=== PATIENT | female | born 1950 | race Caucasian/White ===

== ENCOUNTER → 2016-09-11 | Outpatient (CLI) | payer MEDICARE, OTHER ==
[~2016-09-11] MED LIST: ADEKS PO; HYDR12.56 PO; LISI-515 PO; NAPR220T95 PO; OXYC1TAB63 PO; TERB250T4 PO; XARE10TA PO
[2016-09-11 09:09] LABS: MEAN CELL VOLUME 80.4 FL (80.0-100.0); MEAN CORPUSCULAR HGB CONC 32.3 % (32.0-36.0); PLATELET COUNT 303 TH/MM3 (150-450); RED BLOOD COUNT 4.73 MIL/MM3 (4.00-5.30); RED CELL DISTRIBUTION WIDTH 15.9 % (11.6-17.2); REVIEW FLAG FINAL; WHITE BLOOD COUNT 5.3 TH/MM3 (4.0-11.0)
[2016-09-11 09:10] LABS: PROTHROMBIN TIME - PATIENT 11.4 SEC (9.8-11.6)
[2016-09-11 09:36] LABS: BICARBONATE 29.9 MEQ/L (21.0-32.0); POTASSIUM 4.2 MEQ/L (3.5-5.1)
[2016-09-11 11:18] LABS: BLOOD, URINE NEG (NEG); GLUCOSE,URINE NEG (NEG); KETONE, URINE NEG (NEG); NITRITE,URINE NEG (NEG); PH, URINE 5.5 (5.0-8.5); URINE COLOR LIGHT-YELLOW (YELLW/STRAW)
[2016-09-11 11:29] LABS: COMMENT (UR) CATH-CULT NOT IND; CULTURE IF INDICATED CATH CULTURE NOT IND
== END ==
LOC: CPRE 08:35
PROVIDERS: ATTEND Orthopaedic Surgery
DX: Z01.812 Encounter for preprocedural laboratory examination (principal); M17.12 Unilateral primary osteoarthritis, left knee; M79.609 Pain in unspecified limb
CPT/HCPCS: 36415; 80048; 81001; 85027; 85610; 85730

== ENCOUNTER → 2016-09-21 | Day surgery (SDC) | payer MEDICARE, OTHER ==
[~2016-09-21] MED LIST changes: +CHLORHEXIDINE GLUCONATE 4% SOLN 120 ML BTL TOP SCH; +EXPAREL PERI-ARTICULAR INJECTION (TOTAL VOL. 100 ML) P-ARTICULR SCH; +INSULIN HUMAN REGULAR 1,000 UNITS/10 ML VIAL SQ PRN; +LACTATED RINGER'S 1000 ML IV SCH; +METOPROLOL TARTRATE 25 MG TAB PO PRN; +SODIUM CHLORID 0.9% 500 ML IV SCH; +SODIUM CHLORIDE 0.9% IV SCH; -TERB250T4 PO; +TRANEXAMIC ACID IV SCH; +ceFAZolin 2 GM PREMIX 50 ML IV SCH
== END | disposition home or self-care (01) ==
LOC: HSDC 07:14 → HSDI 07:14 → UNDOADMIN 07:14 → EDSTATUS 10:00
PROVIDERS: ATTEND Orthopaedic Surgery
DX: M17.12 Unilateral primary osteoarthritis, left knee (principal); M25.562 Pain in left knee; R26.2 Difficulty in walking, not elsewhere classified; Z53.8 Procedure and treatment not carried out for other reasons
CPT/HCPCS: 99211; G0463

== ENCOUNTER 2016-10-07 10:12 | Inpatient (IN) | payer MEDICARE, OTHER ==
[~2016-10-07] VITALS: Ht 175.3 cm; Wt 91.5 kg
[~2016-10-07 10:12] MED LIST changes: -CHLORHEXIDINE GLUCONATE 4% SOLN 120 ML BTL TOP SCH; -EXPAREL PERI-ARTICULAR INJECTION (TOTAL VOL. 100 ML) P-ARTICULR SCH; -INSULIN HUMAN REGULAR 1,000 UNITS/10 ML VIAL SQ PRN; -LACTATED RINGER'S 1000 ML IV SCH; -METOPROLOL TARTRATE 25 MG TAB PO PRN; -OXYC1TAB63 PO; -SODIUM CHLORID 0.9% 500 ML IV SCH; -SODIUM CHLORIDE 0.9% IV SCH; -TRANEXAMIC ACID IV SCH; -XARE10TA PO; -ceFAZolin 2 GM PREMIX 50 ML IV SCH
[2016-10-12] MEDS: CHLORHEXIDINE GLUCONATE 4% SOLN 120 ML BTL TOP SCH (08:15)
[2016-10-12] MEDS ORDERED: METOPROLOL TARTRATE 25 MG TAB PO PRN (08:15)
[2016-10-12] MEDS ORDERED: ceFAZolin 2 GM PREMIX 50 ML IV SCH (08:15)
[2016-10-12] MEDS ORDERED: INSULIN HUMAN REGULAR 1,000 UNITS/10 ML VIAL SQ PRN (08:15)
[2016-10-12 08:20] VITALS: BP 134/67; PULSE 55; RESP 20; TEMP 98.1; O2SAT 97
[2016-10-12 08:36] LABS: AUTOMATED NEUTROPHIL # 2.2 TH/MM3 (1.8-7.7); BASOPHIL % 1.1 % (0.0-2.0); EOSINOPHIL # 0.1 TH/MM3 (0-0.4); EOSINOPHIL % 3.3 % (0.0-4.0); HEMATOCRIT 36.6 % (35.0-46.0); HEMO FLAGS DIFF FINAL; LYMPH % 33.5 % (9.0-44.0); LYMPHOCYTE # 1.4 TH/MM3 (1.0-4.8); MEAN CELL VOLUME 80.9 FL (80.0-100.0); MEAN CORPUSCULAR HEMOGLOBIN 26.3 PG (27.0-34.0); MEAN CORPUSCULAR HGB CONC 32.5 % (32.0-36.0); MONO % 10.1 % (0.0-8.0); PLATELET COUNT 214 TH/MM3 (150-450); RED BLOOD COUNT 4.52 MIL/MM3 (4.00-5.30); RED CELL DISTRIBUTION WIDTH 17.1 % (11.6-17.2); WHITE BLOOD COUNT 4.2 TH/MM3 (4.0-11.0)
[2016-10-12] MEDS ORDERED: MIDAZOLAM HCL 2 MG/2 ML VIAL ONE ×2 (08:51→09:39)
[2016-10-12] MEDS ORDERED: GENTAMICIN SULFATE 80 MG/2 ML VIAL ONE (08:58)
[2016-10-12] MEDS: BUPIVACAINE LIPOSO PF 1.3% INJ 20 ML in SODIUM CHLORIDE 0.9% INJ 80 ML P-ARTICULR SCH ×2 (09:00→10:27)
[2016-10-12] MEDS: SODIUM CHLORID 0.9% 500 ML IV SCH (09:00)
[2016-10-12] MEDS ORDERED: LACTATED RINGER'S 1000 ML IV SCH (09:00)
[2016-10-12] MEDS: TRANEXAMIC ACID INJ 915 MG in SODIUM CHLORIDE 0.9% INJ 100 ML IV SCH ×2 (09:00→10:07)
[2016-10-12] MEDS ORDERED: HYDROmorphone HCL PF 2 MG/ML VIAL ONE (09:39)
[2016-10-12] MEDS ORDERED: fentaNYL CITRATE 250 MCG/5 ML AMP ONE (09:39)
[2016-10-12] MEDS ORDERED: MAGNESIUM HYDROXIDE SUSP 30 ML CUP PO PRN (10:00)
[2016-10-12] MEDS ORDERED: SODIUM CHLORIDE 0.9% FLUSH 5 ML FLUSH IVF PRN (10:00)
[2016-10-12] MEDS ORDERED: Post-op Orders (for Pharmacy) MISC XX ONE (10:00)
[2016-10-12] MEDS ORDERED: TRANEXAMIC ACID INJ 915 MG in SODIUM CHLORIDE 0.9% INJ 100 ML IV SCH ×2 (11:00→14:00)
[2016-10-12] MEDS ORDERED: ZOLPIDEM TARTRATE 5 MG TAB PO PRN (11:00)
[2016-10-12] MEDS ORDERED: oxyCODONE/ACETAMINOPHEN 5 MG/325 MG TAB PO PRN (11:00)
[2016-10-12] MEDS ORDERED: MORPHINE SULFATE 4 MG/ML INJ IV PUSH PRN (11:00)
[2016-10-12] MEDS ORDERED: ONDANSETRON HCL 4 MG/2 ML VIAL IVP PRN (11:00)
[2016-10-12] MEDS ORDERED: NEOSTIGMINE 3 MG/3 ML SYR IV ONE (11:23)
[2016-10-12] MEDS ORDERED: ONDANSETRON HCL 4 MG/2 ML VIAL IV PUSH ONE (11:23)
[2016-10-12] MEDS ORDERED: PROPOFOL 200 MG/20 ML AMP IV ONE (11:23)
[2016-10-12] MEDS ORDERED: LACTATED RINGER'S 1000 ML INJ 1,000 ML IV ONE (11:23)
[2016-10-12] MEDS ORDERED: BUPIVACAINE LIPOSOME PF 1.3% 20 ML VIAL ONE (11:59)
--- NOTE | 2016-10-12 12:29 | HHI.FF ---
Face to Face Verification Diagnosis: (1) Status post total left knee replacement Physical Therapy Gait training Knee: Total knee, Protocol: Left, Gait training, Full weight bearing Left LE Weight Bearing: WB as tolerated Left LE Range of Motion: Active ROM (AROM, AAROM, PROM, PRE. ROM goal is 0 to 135 degrees. ROM achieved in the OR was 0 to 145 degrees.) Nursing Nursing: Dressing changes Dressing Changes: Daily dressing change, Coverderm/Primapore Additional Instructions Remove steristrips on postop day 14. I have seen patient Alison Bautista on 10/12/16. My clinical findings support the need for the requested home health care services because: Ltd mobility - disease progression Limited ability to care for self High risk of falls I certify that my clinical findings support that this patient is homebound because: Post-op weakness Unsteady gait/balance Unsafe to leave home unassisted Allen Ashley MD (Charles) Oct 12, 2016 12:29
[2016-10-12] MEDS ORDERED: *ONDANSETRON 4 MG VIAL PERIprocedural Use ONLY ONE (13:09)
[2016-10-12] MEDS ORDERED: *morphine SULFATE 8 MG/ML PERIprocedure ONLY ONE ×2 (13:19→13:33)
[2016-10-12] MEDS ORDERED: PROMETHAZINE HCL 25 MG SUPP ONE (13:23)
[2016-10-12] MEDS ORDERED: DO NOT ADM ANY ANTICOAGULANT DRUGS XX PRN (13:30)
[2016-10-12] MEDS ORDERED: *HYDROmorphone PF 1 MG VIAL PERIprocedural Use ONLY ONE (13:41)
[2016-10-12] MEDS ORDERED: PROCHLORPERAZINE INJ 10 MG/2 ML VIAL ONE (13:49)
[2016-10-12] MEDS: LACTATED RINGER'S 1000 ML INJ 1,000 ML IV SCH (14:06)
[2016-10-12] MEDS: KETOROLAC TROMETHAMINE 30 MG/ML (IVP) VIAL IVP SCH ×2 (14:30→22:07)
[2016-10-12] MEDS ORDERED: PROCHLORPERAZINE INJ 10 MG/2 ML VIAL IV ONE (14:30)
[2016-10-12] MEDS ORDERED: PROMETHAZINE HCL 25 MG SUPP RECTAL ONE (15:00)
--- NOTE | 2016-10-12 15:01 | RADRPT ---
EXAM DATE/TIME: 10/12/2016 12:54 [facility] COMPARISON: KNEE RIGHT LTD (1 OR 2 VWS), May 04, 2016, 15:09. INDICATIONS : Left knee postoperative. MEDICAL HISTORY : None. SURGICAL HISTORY : Left knee replacement. ENCOUNTER: Initial ACUITY: 1 day PAIN SCORE: Non-responsive. LOCATION: Left knee FINDINGS: The patient is post total knee are plasty. Orthopedic hardware is in excellent position. The alignmen t is good. CONCLUSION: 1. Orthopedic hardware excellent position. Rakesh Urrutia MD on October 12, 2016 at 14:58 Board Certified Radiologist. This report was verified electronically.
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
[2016-10-12] MEDS ORDERED: hydrALAZINE HCL 20 MG/ML VIAL IV PRN (15:30)
[2016-10-12 16:00] VITALS: BP 128/73; PULSE 76; RESP 16; TEMP 95.7; O2SAT 100
[2016-10-12] MEDS: MAGNESIUM HYDROXIDE SUSP 30 ML CUP PO SCH ×2 (16:00→22:06)
[2016-10-12 17:55] VITALS: O2SAT 98
[2016-10-12 20:41] VITALS: BP 123/76; PULSE 73; RESP 18; TEMP 96.6; O2SAT 96
[2016-10-12] MEDS: SODIUM CHLORIDE 0.9% FLUSH 5 ML FLUSH IVF SCH (21:00)
[2016-10-12] MEDS: SENNOSIDES 8.6 MG TAB PO SCH (22:06)
[2016-10-12] MEDS: oxyCODONE/ACETAMINOPHEN 5 MG/325 MG TAB PO PRN (23:56)
[2016-10-13] VITALS (7 sets, daily range): BP systolic 114–139; BP diastolic 55–73; PULSE 55–73; RESP 18–19; TEMP 97.2–98.9; O2SAT 93–100
[2016-10-13] MEDS: SODIUM CHLORID 0.9% 500 ML IV SCH (01:40)
[2016-10-13] MEDS: KETOROLAC TROMETHAMINE 30 MG/ML (IVP) VIAL IVP SCH ×4 (03:29→20:21)
[2016-10-13] MEDS: LACTATED RINGER'S 1000 ML INJ 1,000 ML IV SCH ×2 (03:29→12:00)
[2016-10-13 06:07] LABS: HEMATOCRIT 28.8 % (35.0-46.0); REVIEW FLAG FINAL
--- NOTE | 2016-10-13 06:25 | PD.ORT.PN ---
Subjective Post Op Day #: 1 Subjective Remarks She has some pain as expected. It is well controlled. Range of Motion -20 to 75 degrees. Distance Walked 2 feet with PT. Objective Vitals Vital Signs Date Time Temp Pulse Resp B/P Pulse Ox O2 Delivery O2 Flow Rate FiO2 10/13/16 05:04 18 10/13/16 04:06 97.2 58 18 128/67 98 10/13/16 01:27 18 10/13/16 00:43 97.5 55 19 114/55 100 10/12/16 20:41 96.6 73 18 123/76 96 10/12/16 17:55 98 Nasal Cannula 3.00 10/12/16 16:00 95.7 76 16 128/73 100 10/12/16 14:40 55 16 115/58 100 Nasal Cannula 3 10/12/16 14:15 97.4 52 16 120/56 100 Nasal Cannula 3 10/12/16 13:45 55 16 120/68 100 Nasal Cannula 3 10/12/16 13:30 60 16 153/80 99 Nasal Cannula 3 10/12/16 13:15 75 15 142/80 99 Nasal Cannula 3 10/12/16 13:00 61 15 117/70 98 Nasal Cannula 3 10/12/16 12:45 97.7 71 14 113/68 99 Nasal Cannula 3 10/12/16 08:20 98.1 55 20 134/67 97 I/O 10/12/16 10/12/16 10/12/16 10/13/16 10/13/16 10/13/16 07:00 15:00 23:00 07:00 15:00 23:00 Intake Total 1300 ml 480 ml Output Total 350 ml 110 ml Balance 950 ml 480 ml -110 ml Intake Oral 480 ml IV Total 200 ml Other 1100 ml Output Urine Total 200 ml Drainage Total 50 ml 110 ml Estimated Blood Loss 100 ml # Voids 1 2 # Bowel Movements 0 Result Diagram: 10/13/16 0525 Imaging Last 72 hours Impressions Knee X-Ray 10/12/16 0000 Signed Impressions: Service Date/Time: Wednesday, October 12, 2016 12:54 - CONCLUSION: 1. Orthopedic hardware excellent position. Rakesh Urrutia MD Objective Remarks She is resting comfortably, supine in bed in the CPM. The neurovascular status is intact. The dressing is dry and intact. Assessment & Plan Problem List: (1) Status post total left knee replacement Plan: Continue postop care and PT. Assessment and Plan Condition: Good. Orthopaedically stable. DVT prophylaxis: TEDs, sequentials, Xarelto (has med at home). Discharge plans: Home with [facility]. Has appointment. Allen Ashley MD (Charles) Oct 13, 2016 06:24
[2016-10-13 06:34] LABS: POTASSIUM 4.3 MEQ/L (3.5-5.1)
[2016-10-13] MEDS: CHLORHEXIDINE GLUCONATE 4% SOLN 120 ML BTL TOP SCH (08:15)
--- NOTE | 2016-10-13 08:21 | HHI.FPPN ---
Subjective Remarks No fevers, chills, nausea, vomiting, abdominal pain. No BM yet. Pain with movement of the right knee or body repositioning is noted. She states her BP medications have previously been lowered due to good control and endorses that she was taking lisinopril 20 and HCTZ 12.5mg daily at home. She has not had her BP meds yet this morning. Objective Vitals Vital Signs Date Time Temp Pulse Resp B/P Pulse Ox O2 Delivery O2 Flow Rate FiO2 10/13/16 05:04 18 10/13/16 04:06 97.2 58 18 128/67 98 10/13/16 01:27 18 10/13/16 00:43 97.5 55 19 114/55 100 10/12/16 20:41 96.6 73 18 123/76 96 10/12/16 17:55 98 Nasal Cannula 3.00 10/12/16 16:00 95.7 76 16 128/73 100 10/12/16 14:40 55 16 115/58 100 Nasal Cannula 3 10/12/16 14:15 97.4 52 16 120/56 100 Nasal Cannula 3 10/12/16 13:45 55 16 120/68 100 Nasal Cannula 3 10/12/16 13:30 60 16 153/80 99 Nasal Cannula 3 10/12/16 13:15 75 15 142/80 99 Nasal Cannula 3 10/12/16 13:00 61 15 117/70 98 Nasal Cannula 3 10/12/16 12:45 97.7 71 14 113/68 99 Nasal Cannula 3 10/12/16 08:20 98.1 55 20 134/67 97 I/O 10/12/16 10/12/16 10/12/16 10/13/16 10/13/16 10/13/16 07:00 15:00 23:00 07:00 15:00 23:00 Intake Total 1300 ml 480 ml 720 ml Output Total 350 ml 110 ml Balance 950 ml 480 ml 610 ml Intake Oral 480 ml 720 ml IV Total 200 ml Other 1100 ml Output Urine Total 200 ml Drainage Total 50 ml 110 ml Estimated Blood Loss 100 ml # Voids 1 2 3 # Bowel Movements 0 0 Result Diagram: 10/13/16 0525 10/13/16 0525 Imaging Last 72 hours Impressions Knee X-Ray 10/12/16 0000 Signed Impressions: Service Date/Time: Wednesday, October 12, 2016 12:54 - CONCLUSION: 1. Orthopedic hardware excellent position. Rakesh Urrutia MD Objective Remarks GENERAL: Well-nourished, well-developed female patient, sitting up in bed. She is ordering breakfast. SKIN: Warm and dry. Fingernails 2nd-4th digits having mild discoloration without nail thickening and only mildly elevated from the nail bed without extension onto the cuticle. 3rd and 4th fingernail having underlying black staining. HEAD: Atraumatic. Normocephalic. EYES: Pupils equal and round. No scleral icterus. No injection or drainage. ENT: No nasal bleeding or discharge. Mucous membranes pink and moist. Uvula is midline. NECK: Trachea midline. No JVD. CARDIOVASCULAR: Regular rate and rhythm. No murmurs. The patient has 2+ pulses in upper and lower extremities bilaterally. RESPIRATORY: No accessory muscle use. Clear to auscultation without crackles or wheezes. Breath sounds equal bilaterally. GASTROINTESTINAL: Abdomen soft, non-tender, nondistended. Bowel sounds are hypoactive. Hepatic and splenic margins not palpable. MUSCULOSKELETAL: Right lower extremity without any obvious deformities or abnormalities. Scar over the right patella. Left lower extremity is held in traction device with surgical drain coming from clean Thomas wrap and dressing, small volume sanguinous output. The right foot has normal sensation, notable that the second and great toe are overlapping due to bony deformity. Extremities otherwise without clubbing, cyanosis, or edema. NEUROLOGICAL: Sleepy but easily aroused from sleep. She is alert and oriented 4. No obvious cranial nerve deficits. Normal speech. Medications and IVs Inpatient Medications Bupivacaine Liposome 20 ml/ Sodium Chloride 100 ml @ 120 mls/hr ONCE P- ARTICULR Last administered on 10/12/16 10:27; Start 10/12/16 at 09:00; Stop at 08:59 Cefazolin Sodium/ Dextrose 50 ml @ 100 mls/hr ROCKET MOTOR MECHANIC IV Last administered on 10/12/16 10:19; Start 10/12/16 at 08:15; Stop 10/15/16 at 08:14 Cefazolin Sodium/ Sodium Chloride (Ancef Inj/NS Inj) 100 ml @ 200 mls/hr Q6H IV Last administered on 10/13/16 03:29; Start 10/12/16 at 20:00; Stop at 08:29; Status DC Chlorhexidine Gluconate 1 applic 1 applic ONCE TOP ; Start 10/12/16 at 08:15; Stop 10/15/16 at 08:14 Docusate Sodium (Colace) 100 mg BID PO ; Start 10/13/16 at 21:00 Hydralazine HCl (Apresoline Inj) 10 mg Q6H PRN IV SEE LABEL COMMENTS; Start at 15:30 Hydrochlorothiazide (Microzide) 12.5 mg DAILY PO ; Start 10/13/16 at 09:00 Insulin Human Regular (NovoLIN R INJ) See Protocol Table ... UNSCH X1 PRN SQ SEE PROTOCOL; Start 10/12/16 at 08:15; Stop 10/13/16 at 08:14; Status DC IV Flush (NS Flush) 2 ml UNSCH PRN IVF FLUSH AFTER USING IV ACCESS; Start 10/12 at 10:00 IV Flush 2 ml 2 ml BID IVF ; Start 10/12/16 at 21:00 Ketorolac Tromethamine 15 mg 15 mg Q6H IVP Last administered on 10/13/16 03:29 ; Start 10/12/16 at 15:00; Stop 10/14/16 at 09:01 Lactated Ringer's (Lr 1000 ml Inj) 1,000 ml @ 80 mls/hr [id number] IV Last administered on 10/13/16 03:29; Start 10/12/16 at 11:00 Lisinopril (Prinivil) 20 mg DAILY PO ; Start 10/13/16 at 09:00 Magnesium Hydroxide (Milk Of Magnesia Liq) 30 ml BID PO Last administered on 22:06; Start 10/12/16 at 16:00 Metoprolol Tartrate 25 mg 25 mg UNSCH X1 PRN PO SEE LABEL COMMENTS; Start 10/12 at 08:15; Stop 10/13/16 at 08:14; Status DC Miscellaneous Information ALL NURSING DEPARTME... UNSCH PRN XX SEE LABEL COMMENTS; Start 10/12/16 at 13:30; Stop 10/13/16 at 13:29 Miscellaneous Information (Post-op Orders (for Pharmacy)) STAT ONCE XX ; Start 10/12/16 at 10:00; Stop 10/12/16 at 14:28; Status DC Morphine Sulfate (Morphine Inj) 4 mg Q3H PRN IV PUSH BREAKTHROUGH PAIN; Start 10/12/16 at 11:00 Multivitamins (Aquadeks Ped Liq) 1 ml DAILY PO ; Start 10/13/16 at 09:00 Ondansetron HCl (Zofran Inj) 4 mg Q6H PRN IVP NAUSEA OR VOMITING; Start at 11:00 Oxycodone/ Acetaminophen (Percocet 5-325 Mg) 2 tab Q4H PRN PO PAIN SCALE 5 TO 10 Last administered on 10/12/16 23:56; Start 10/12/16 at 11:00 Prochlorperazine Edisylate (Compazine Inj) 5 mg NOW ONCE IV ; Start 10/12/16 at 14:30; Stop 10/12/16 at 14:31; Status DC Promethazine HCl (Phenergan Supp) 25 mg ONCE ONCE RECTAL ; Start 10/12/16 at 15 :00; Stop 10/12/16 at 15:01; Status DC Rivaroxaban (Xarelto) 10 mg Q24H PO ; Start 10/13/16 at 12:00 Sennosides (Senokot) 17.2 mg HS PO Last administered on 10/12/16 22:06; Start 10/12/16 at 21:00 Sodium Chloride (NS 500 ml Inj) 500 ml @ 30 mls/hr [id number] IV ; Start 10/12/16 at 09:00; Stop 10/13/16 at 08:59 Tranexamic Acid 915 mg/Sodium Chloride 109.15 ml @ 200 mls/ hr ONCE IV ; Start 10/12/16 at 11:00; Stop 10/13/16 at 10:59 Tranexamic Acid/ Sodium Chloride (Cyklokapron Inj/ NS Inj) 109.15 ml @ 200 mls / hr UNSCH IV Last administered on 10/12/16 13:07; Start 10/12/16 at 14:00; Stop 10/12/16 at 14:33; Status DC Zolpidem Tartrate (Ambien) 5 mg HS PRN PO SLEEP; Start 10/12/16 at 11:00 Urinary Catheter: No Vascular Central Line Catheter: No A/P Assessment and Plan 66-year-old female admitted for scheduled left knee arthroplasty with Dr. Ashley. Surgical procedure completed on 10/12/16. Discharge Planning Likely tomorrow if pain is controlled and cleared by Dr. Ashley Problem List: (1) Status post total left knee replacement Status: Acute Plan: POD # 0, performed by Dr. Ashley Post-op pain management per Ortho Activity and diet orders per Ortho Postop antibiotics per Ortho Diet as tolerated Monitor for post-op complications, e.g. fever, atelectasis, bleeding, compartment syndrome Pain control per Ortho, currently Percocet 5-325mg 1-2 tabs pain score 0-5 and 5 -10, with morphine 4 mg IV q3h PRN for breakthrough (2) HTN (hypertension) Status: Chronic Plan: Well-controlled on home medications, Hydrochlorothiazide 12.5 Mg once daily and Lisinopril 20 Mg once daily. Will continue home meds as inpatient. Hold BP for hypotension (<90/60) or hypotensive symptoms. Give IV fluid bolus as needed if hypotensive and workup other causes of hypotension if it arises Add PRN hydralazine IV q6hr for SBP >180 and DBP >100 (3) Onychomycosis Status: Acute Plan: Chronic. Stable. May hold topical terbinafine as inpatient. May restart if patient prefers. (4) Fluids/Electrolytes/Nutrition/Prophylaxis Status: Acute Plan: Fluids: LR @ 80ml/hr Electrolytes: monitor and replete as needed, BMP in AM given IVF Nutrition: regular diet as tolerated DVT Prophylaxis: Per ortho. Xarelto ordered to start 10/13. SCD on right leg, surgical left leg in traction with drain GI Prophylaxis: none indicated CODE STATUS: Full code [facility] Dr. Constantin Krishna Problem Qualifiers (1) HTN (hypertension): Qualified Code: I10 - Essential hypertension Qiana Rene MD R1 Oct 13, 2016 08:21
[2016-10-13] MEDS: SODIUM CHLORIDE 0.9% FLUSH 5 ML FLUSH IVF SCH ×2 (08:50→20:22)
[2016-10-13] MEDS: HYDROCHLOROTHIAZIDE 12.5 MG CAP PO SCH (08:52)
[2016-10-13] MEDS: LISINOPRIL 20 MG TAB PO SCH (08:52)
[2016-10-13] MEDS: MAGNESIUM HYDROXIDE SUSP 30 ML CUP PO SCH ×2 (08:53→20:22)
[2016-10-13] MEDS: [UNRECOGNIZED DRUG - OTHER] PO SCH (09:00)
[2016-10-13] MEDS: ZINC PO SCH (09:00)
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
--- NOTE | 2016-10-13 11:26 | MP ---
cc: Jacqui GALLO. DATE OF SURGERY 10/12/2016 PREOPERATIVE DIAGNOSIS Primary osteoarthritis left knee POSTOPERATIVE DIAGNOSIS Primary osteoarthritis left knee OPERATION PERFORMED Left total knee arthroplasty using [place] [employer] Triathlon prosthesis (uncemented). SURGEON Erlin Gallo MD TOOL DRESSER Chucky Hennessy, CSFA, Devin MERCHANTA ANESTHESIA General endotracheal with supplemental interscalene block and local INDICATIONS AND FINDINGS This 66-year-old woman has had left knee pain subsequently for the past 23 years gradually increasing to the point that her ambulation tolerance is 100 feet because of the pain. She has difficulty moving the knee. She leans on a cart when shopping. She has difficulty with stairs, walking and episodic cracking and popping. She has not responded adequately to intra-articular corticosteroids, analgesics, nonsteroidal anti-inflammatory agents, exercise, activity modification and ambulatory aids. Physical findings shows medial compartment tenderness especially with some medial laxity and crepitation. X-rays show loss of articular cartilage particularly in the medial compartment but also in the lateral and patellofemoral compartments were there are osteophytes. OPERATIVE FINDINGS Showed significant osteoarthritis which was tricompartmental, but predominately in the medial compartment with loss of articular cartilage and tricompartmental osteophytes. The prosthesis used was a [employer] Triathlon prosthesis with the femur being an uncemented size five cruciate-retaining left, the tibia being a Tritanium size five baseplate with an 11 mm spacer also cruciate-retaining. The patella was a Tritanium backed asymmetric patella size 35. PROCEDURE The patient had an adductor canal block carried out preoperatively. She was brought to the clean-air operating suite where general endotracheal anesthetic was administered. She was placed in a supine position on the operating table with a small bolster under the left hip. The pneumatic tourniquet was applied to the left thigh. The limb was then prepped with alcohol, Hibiclens and Chloraprep and draped in the usual manner with the knee draped free. An appropriate time-out procedure was carried out. Local anesthesia was administered into the incision site with Exparel. The incision was then made from about three fingerbreadths above the superior medial pole of the patella down to the tibial tubercle, slightly on the medial side. The incision was deepened through the subcutaneous tissues to the retinacular structures which were exposed medially and laterally. A medial retinacular incision was made from the superior medial pole of the patella down to the tibial tubercle and up into the quadriceps tendon splitting it longitudinally in the medial one-third. The patella was reflected. The infrapatellar fat pad was debulked. The medial and lateral capsular dissection was carried out. Medial and lateral meniscectomies were initiated. The posterior surface of the patella was excised with the oscillating saw taking care to prevent injury to tendinous and nerve structures. A patella protector was applied. White size line was then identified and marked on the femur. A fenestration was made in the distal end of the femur on the proximal end of the tibia for intramedullary referencing guides. The distal femoral cutting block was then positioned for a 5 degrees 8-mm cut. This was stabilized with pins. The jig was removed. The distal femoral cut was completed with the oscillating saw. The sizing guide was then positioned in line with the white size line and the epicondylar axis. This was stabilized with pins. The size was determined to be a size five. A four in one cutting block was then positioned in place and stabilized with pins. Anterior and posterior cuts were made followed by posterior and anterior chamfer cuts. Osteophytes were trimmed from the femur. Medial and lateral meniscectomies were completed. The proximal end of the tibia was then approached. An intramedullary referencing guide was positioned in place. This was stabilized for rotation and then subsequently the stylus was used to assess just depth of cut. Cutting block was stabilized with pins. This was adjusted according to the spacer block. The proximal tibial cut was then initiated with the oscillating saw taking care to prevent injury to associated structures. The cutting block had to be dropped 2 mm because of entry into the joint. The proximal tibial cut was completed with the oscillating saw taking care to prevent injury to neurovascular and ligamentous structures. After removal of the proximal tibial piece, a bone plug was placed into the distal femur and proximal tibia. The tibia baseplate chosen was a size five after trimming osteophytes. Local anesthesia was administered into the posterior medial and lateral capsules with Exparel at this time. The size five tibial baseplate trial was positioned in place with an 11 mm spacer. The femoral component was impacted into place. The patella drill holes were then made. The patella trial was positioned in place. After the tibia was stabilized with pins for appropriate rotation, the knee was taken through a range of motion. This was easily 0 degrees extension to 145 degrees of flexion with excellent stability and excellent patellofemoral tracking. The femoral drill holes were made. The patella and femoral trial components were removed. The spacer was removed. The tibial punch was impacted through its guide and then removed. The tibial baseplate trial was removed. The tibial drill guide was positioned in place and drill holes made. The tibial baseplate was then impacted into place and seated appropriately and the 11 mm spacer was inserted. The femoral component was then impacted into place and seated appropriately. Using the patella vice, the patellar component was likewise positioned in place and seated appropriately. The remainder of the Exparel was then injected throughout the knee. The drain was brought out the superolateral aspect of the suprapatellar pouch. Wound closure then commenced using 0 Vicryl interrupted [id number] sutures for the retinacular and capsular structures, 2-0 Vicryl interrupted simple sutures with buried knots for the subcutaneous tissues and 4-0 Monocryl continuous subcuticular closure for the skin. The wound was dressed with Steri-Strips followed by a dry dressing, sterile Sof-Rol, cooling pad, further sterile Sof-Rol and Thomas bandages from the base of the toes to midthigh. The patient was transferred from the operating room to the recovery room in satisfactory condition having tolerated the procedure well. Counts were correct. Specimens none. Estimated blood loss 250 mL. MD BARRON Luu/DESTINY /12:35 PM /11:07 AM
[2016-10-13] MEDS: RIVAROXABAN 10 MG TAB PO SCH ×2 (12:00→15:15)
[2016-10-13] MEDS: oxyCODONE/ACETAMINOPHEN 5 MG/325 MG TAB PO PRN ×3 (12:16→20:21)
[2016-10-13] MEDS: SENNOSIDES 8.6 MG TAB PO SCH (20:20)
[2016-10-13] MEDS: DOCUSATE SODIUM 100 MG CAP PO SCH (20:22)
[2016-10-14] VITALS (7 sets, daily range): BP systolic 115–139; BP diastolic 61–69; PULSE 65–80; RESP 18–21; TEMP 96.3–98.6; O2SAT 93–98
[2016-10-14] MEDS: KETOROLAC TROMETHAMINE 30 MG/ML (IVP) VIAL IVP SCH ×2 (02:49→07:47)
[2016-10-14] MEDS: oxyCODONE/ACETAMINOPHEN 5 MG/325 MG TAB PO PRN ×5 (02:49→20:58)
[2016-10-14 06:16] LABS: HEMATOCRIT 26.4 % (35.0-46.0); REVIEW FLAG FINAL
--- NOTE | 2016-10-14 07:22 | PD.ORT.PN ---
Subjective Post Op Day #: 2 Subjective Remarks She has somewhat less pain. It is well controlled. Range of Motion -10 to 83 degrees. Distance Walked 20 feet. Objective Vitals Vital Signs Date Time Temp Pulse Resp B/P Pulse Ox O2 Delivery O2 Flow Rate FiO2 10/14/16 04:46 97.0 79 21 117/69 96 10/14/16 00:39 97.4 65 20 119/63 94 10/13/16 20:41 97.6 63 19 130/65 97 10/13/16 20:17 93 Nasal Cannula 10/13/16 15:36 98.9 66 18 139/64 95 10/13/16 11:31 98.1 68 18 135/60 97 10/13/16 08:00 97.2 73 18 133/73 100 I/O 10/13/16 10/13/16 10/13/16 10/14/16 10/14/16 10/14/16 07:00 15:00 23:00 07:00 15:00 23:00 Intake Total 720 ml 240 ml 360 ml 480 ml Output Total 110 ml 150 ml 110 ml Balance 610 ml 90 ml 250 ml 480 ml Intake Oral 720 ml 240 ml 360 ml 480 ml Drainage Total 110 ml 150 ml 110 ml # Voids 3 2 2 4 # Bowel Movements 0 0 0 0 Result Diagram: 10/14/16 0536 10/13/16 0525 Imaging Last 72 hours Impressions Knee X-Ray 10/12/16 0000 Signed Impressions: Service Date/Time: Wednesday, October 12, 2016 12:54 - CONCLUSION: 1. Orthopedic hardware excellent position. Rakesh Urrutia MD Objective Remarks She is resting comfortably, supine in bed in the CPM. The neurovascular status is intact. The dressing is dry and intact. Assessment & Plan Ortho Post Op Day #: 2 Problem List: (1) Status post total left knee replacement Plan: Continue postop care and PT. Assessment and Plan Condition: Good. Orthopaedically stable. DVT prophylaxis: TEDs, sequentials, Xarelto (has med at home). Discharge plans: Home with [facility]. Has appointment. Rx: [place] 7.5/325 Allen Ashley MD (Charles) Oct 14, 2016 07:22
[2016-10-14] MEDS: HYDROCHLOROTHIAZIDE 12.5 MG CAP PO SCH (07:47)
[2016-10-14] MEDS: LISINOPRIL 20 MG TAB PO SCH (07:47)
[2016-10-14] MEDS: DOCUSATE SODIUM 100 MG CAP PO SCH ×2 (07:47→20:59)
[2016-10-14] MEDS: ZINC PO SCH (08:05)
[2016-10-14] MEDS: [UNRECOGNIZED DRUG - OTHER] PO SCH (08:05)
[2016-10-14] MEDS: MAGNESIUM HYDROXIDE SUSP 30 ML CUP PO SCH ×2 (08:05→21:00)
[2016-10-14] MEDS: CHLORHEXIDINE GLUCONATE 4% SOLN 120 ML BTL TOP SCH (08:15)
[2016-10-14] MEDS ORDERED: XARE10TA PO (08:16)
[2016-10-14] MEDS ORDERED: OXYC1TAB63 PO (08:16)
--- NOTE | 2016-10-14 12:17 | HHI.FPPN ---
Subjective Remarks Patient was seen and examined this morning. She states that she has been eating and drinking without difficulty. She denies fevers, chills, nausea, vomiting, abdominal pain. She has not had a bowel movement since her knee replacement. However, she is passing gas. She notes that she was to go home today but did not work with PT much yesterday. Of note, patient states the drain was removed from the knee this morning. Objective Vitals Vital Signs Date Time Temp Pulse Resp B/P Pulse Ox O2 Delivery O2 Flow Rate FiO2 10/14/16 11:50 96.3 70 18 136/67 93 10/14/16 09:23 93 21 10/14/16 08:00 98.6 68 18 125/68 93 10/14/16 04:46 97.0 79 21 117/69 96 10/14/16 00:39 97.4 65 20 119/63 94 10/13/16 20:41 97.6 63 19 130/65 97 10/13/16 20:17 93 Nasal Cannula 10/13/16 15:36 98.9 66 18 139/64 95 I/O 10/13/16 10/13/16 10/13/16 10/14/16 10/14/16 10/14/16 07:00 15:00 23:00 07:00 15:00 23:00 Intake Total 720 ml 240 ml 360 ml 480 ml Output Total 110 ml 150 ml 110 ml Balance 610 ml 90 ml 250 ml 480 ml Intake Oral 720 ml 240 ml 360 ml 480 ml Drainage Total 110 ml 150 ml 110 ml # Voids 3 2 2 4 # Bowel Movements 0 0 0 0 Result Diagram: 10/14/16 0536 10/13/16 0525 Imaging Last 72 hours Impressions Knee X-Ray 10/12/16 0000 Signed Impressions: Service Date/Time: Wednesday, October 12, 2016 12:54 - CONCLUSION: 1. Orthopedic hardware excellent position. Rakesh Urrutia MD Objective Remarks GENERAL: Well-nourished, well-developed female patient, sleeping. SKIN: Warm and dry. Fingernails 2nd-4th digits having mild discoloration without nail thickening and only mildly elevated from the nail bed without extension onto the cuticle. 3rd and 4th fingernail having underlying black staining. CARDIOVASCULAR: Regular rate and rhythm. No murmurs. RESPIRATORY: No accessory muscle use. Clear to auscultation without crackles or wheezes. Breath sounds equal bilaterally. GASTROINTESTINAL: Abdomen soft, non-tender, nondistended. MUSCULOSKELETAL: Left leg wrapped in an Thomas wrap from ankle to thigh, currently in flexion at the knee. Sensation intact into left foot. 2+ dorsalis pedis pulse. Able to move all toes and ankle without issue. NEUROLOGICAL: Awake, alert and oriented 3 Medications and IVs Inpatient Medications Bupivacaine Liposome 20 ml/ Sodium Chloride 100 ml @ 120 mls/hr ONCE P- ARTICULR Last administered on 10/12/16 10:27; Start 10/12/16 at 09:00; Stop at 08:59; Status DC Cefazolin Sodium/ Dextrose 50 ml @ 100 mls/hr [employer] IV Last administered on 10/12/16 10:19; Start 10/12/16 at 08:15; Stop 10/15/16 at 08:14 Cefazolin Sodium/ Sodium Chloride (Ancef Inj/NS Inj) 100 ml @ 200 mls/hr Q6H IV Last administered on 10/13/16 08:48; Start 10/12/16 at 20:00; Stop at 08:29; Status DC Chlorhexidine Gluconate 1 applic 1 applic ONCE TOP ; Start 10/12/16 at 08:15; Stop 10/15/16 at 08:14 Docusate Sodium (Colace) 100 mg BID PO Last administered on 10/14/16 07:47; Start 10/13/16 at 21:00 Hydralazine HCl (Apresoline Inj) 10 mg Q6H PRN IV SEE LABEL COMMENTS; Start at 15:30 Hydrochlorothiazide (Microzide) 12.5 mg DAILY PO Last administered on 07:47; Start 10/13/16 at 09:00 Insulin Human Regular (NovoLIN R INJ) See Protocol Table ... UNSCH X1 PRN SQ SEE PROTOCOL; Start 10/12/16 at 08:15; Stop 10/13/16 at 08:14; Status DC IV Flush (NS Flush) 2 ml UNSCH PRN IVF FLUSH AFTER USING IV ACCESS; Start 10/12 at 10:00 IV Flush 2 ml 2 ml BID IVF Last administered on 10/13/16 20:22; Start at 21:00 Ketorolac Tromethamine 15 mg 15 mg Q6H IVP Last administered on 10/14/16 07:47 ; Start 10/12/16 at 15:00; Stop 10/14/16 at 09:01; Status DC Lactated Ringer's (Lr 1000 ml Inj) 1,000 ml @ 80 mls/hr [id number] IV Last administered on 10/13/16 03:29; Start 10/12/16 at 11:00 Lisinopril (Prinivil) 20 mg DAILY PO Last administered on 10/14/16 07:47; Start 10/13/16 at 09:00 Magnesium Hydroxide (Milk Of Magnesia Liq) 30 ml BID PO Last administered on 08:05; Start 10/12/16 at 16:00 Metoprolol Tartrate 25 mg 25 mg UNSCH X1 PRN PO SEE LABEL COMMENTS; Start 10/12 at 08:15; Stop 10/13/16 at 08:14; Status DC Miscellaneous Information ALL NURSING DEPARTME... UNSCH PRN XX SEE LABEL COMMENTS; Start 10/12/16 at 13:30; Stop 10/13/16 at 13:29; Status DC Miscellaneous Information (Post-op Orders (for Pharmacy)) STAT ONCE XX ; Start 10/12/16 at 10:00; Stop 10/12/16 at 14:28; Status DC Morphine Sulfate (Morphine Inj) 4 mg Q3H PRN IV PUSH BREAKTHROUGH PAIN; Start 10/12/16 at 11:00 Multivitamins (Aquadeks Ped Liq) 1 ml DAILY PO ; Start 10/13/16 at 09:00 Ondansetron HCl (Zofran Inj) 4 mg Q6H PRN IVP NAUSEA OR VOMITING; Start at 11:00 Oxycodone/ Acetaminophen (Percocet 5-325 Mg) 2 tab Q4H PRN PO PAIN SCALE 5 TO 10 Last administered on 10/14/16 13:31; Start 10/12/16 at 11:00 Prochlorperazine Edisylate (Compazine Inj) 5 mg NOW ONCE IV ; Start 10/12/16 at 14:30; Stop 10/12/16 at 14:31; Status DC Promethazine HCl (Phenergan Supp) 25 mg ONCE ONCE RECTAL ; Start 10/12/16 at 15 :00; Stop 10/12/16 at 15:01; Status DC Rivaroxaban (Xarelto) 10 mg Q24H PO Last administered on 10/14/16 13:30; Start 10/13/16 at 12:00 Sennosides (Senokot) 17.2 mg HS PO Last administered on 10/13/16 20:20; Start 10/12/16 at 21:00 Sodium Chloride (NS 500 ml Inj) 500 ml @ 30 mls/hr [id number] IV ; Start 10/12/16 at 09:00; Stop 10/13/16 at 08:59; Status DC Tranexamic Acid 915 mg/Sodium Chloride 109.15 ml @ 200 mls/ hr ONCE IV ; Start 10/12/16 at 11:00; Stop 10/13/16 at 10:59; Status DC Tranexamic Acid/ Sodium Chloride (Cyklokapron Inj/ NS Inj) 109.15 ml @ 200 mls / hr UNSCH IV Last administered on 10/12/16 13:07; Start 10/12/16 at 14:00; Stop 10/12/16 at 14:33; Status DC Zolpidem Tartrate (Ambien) 5 mg HS PRN PO SLEEP; Start 10/12/16 at 11:00 A/P Assessment and Plan 66-year-old female admitted for scheduled left knee arthroplasty with Dr. Ashley. Surgical procedure completed on 10/12/16. Discharge Planning Likely tomorrow once cleared by Dr. Ashley Problem List: (1) Status post total left knee replacement Status: Acute Plan: POD # 2, performed by Dr. Ashley Post-op pain management per Ortho Activity and diet orders per Ortho - to be advanced today Postop antibiotics per Ortho Diet as tolerated Monitor for post-op complications, e.g. fever, atelectasis, bleeding, compartment syndrome Pain control per Ortho, currently Percocet 5-325mg 1-2 tabs pain score 0-5 and 5 -10, with morphine 4 mg IV q3h PRN for breakthrough (2) HTN (hypertension) Status: Chronic Plan: Well-controlled on home medications -Hydrochlorothiazide 12.5 Mg once daily and Lisinopril 20 Mg once daily. -Add PRN hydralazine IV q6hr for SBP >180 and DBP >100 (3) Onychomycosis Status: Acute Plan: Chronic. Stable. Will hold topical terbinafine as inpatient. (4) Fluids/Electrolytes/Nutrition/Prophylaxis Status: Acute Plan: Fluids: LR @ 80ml/hr Electrolytes: monitor and replete as needed Nutrition: regular diet as tolerated DVT Prophylaxis: Per ortho. Xarelto started 10/13 GI Prophylaxis: none indicated CODE STATUS: Full code Problem Qualifiers (1) HTN (hypertension): Qualified Code: I10 - Essential hypertension Qiana Rene MD R1 Oct 14, 2016 12:17
[2016-10-14] MEDS: RIVAROXABAN 10 MG TAB PO SCH (13:30)
[2016-10-14] MEDS: SENNOSIDES 8.6 MG TAB PO SCH (20:59)
[2016-10-14] MEDS: SODIUM CHLORIDE 0.9% FLUSH 5 ML FLUSH IVF SCH (21:01)
[2016-10-15 00:46] VITALS: BP 124/58; PULSE 90; RESP 20; TEMP 98.6; O2SAT 97
[2016-10-15] MEDS: LACTATED RINGER'S 1000 ML INJ 1,000 ML IV SCH ×2 (01:30→07:48)
[2016-10-15 04:42] VITALS: BP 119/70; PULSE 95; RESP 19; TEMP 96; O2SAT 95
--- NOTE | 2016-10-15 06:34 | PD.ORT.PN ---
Subjective Post Op Day #: 3 Subjective Remarks She is doing well. There is not much pain. Range of Motion -10 to 90 degrees. Distance Walked 100 feet. Objective Vitals Vital Signs Date Time Temp Pulse Resp B/P Pulse Ox O2 Delivery O2 Flow Rate FiO2 10/15/16 04:42 96.0 95 19 119/70 95 10/15/16 00:46 98.6 90 20 124/58 97 10/14/16 20:43 98.2 80 20 115/69 95 10/14/16 16:00 97.0 70 18 139/61 98 10/14/16 11:50 96.3 70 18 136/67 93 10/14/16 09:23 93 21 10/14/16 08:00 98.6 68 18 125/68 93 I/O 10/14/16 10/14/16 10/14/16 10/15/16 10/15/16 10/15/16 07:00 15:00 23:00 07:00 15:00 23:00 Intake Total 480 ml 1220 ml 480 ml Balance 480 ml 1220 ml 480 ml Intake Oral 480 ml 1220 ml 480 ml # Voids 4 5 6 # Bowel Movements 0 0 0 Result Diagram: 10/14/16 0536 10/13/16 0525 Imaging Last 72 hours Impressions Knee X-Ray 10/12/16 0000 Signed Impressions: Service Date/Time: Wednesday, October 12, 2016 12:54 - CONCLUSION: 1. Orthopedic hardware excellent position. Rakesh Urrutia MD Objective Remarks She is resting comfortably, supine in bed in the CPM. The neurovascular status is intact. The dressing is dry and intact. There is no erythema or induration. Assessment & Plan Ortho Post Op Day #: 3 Problem List: (1) Status post total left knee replacement Plan: Continue postop care and PT. Assessment and Plan Condition: Good. Orthopaedically stable. DVT prophylaxis: TEDs, sequentials, Xarelto (has med at home). Discharge plans: Home with [facility]. Has appointment. Rx: [place] 7.5/325 Allen Ashley MD (Charles) Oct 15, 2016 06:34
[2016-10-15] MEDS: oxyCODONE/ACETAMINOPHEN 5 MG/325 MG TAB PO PRN ×3 (06:46→15:33)
[2016-10-15 08:00] VITALS: BP 112/58; PULSE 98; RESP 18; TEMP 96.2; O2SAT 92
[2016-10-15] MEDS: SODIUM CHLORIDE 0.9% FLUSH 5 ML FLUSH IVF SCH (08:22)
[2016-10-15] MEDS: HYDROCHLOROTHIAZIDE 12.5 MG CAP PO SCH (08:22)
[2016-10-15] MEDS: LISINOPRIL 20 MG TAB PO SCH (08:22)
[2016-10-15] MEDS: MAGNESIUM HYDROXIDE SUSP 30 ML CUP PO SCH (08:23)
[2016-10-15] MEDS: DOCUSATE SODIUM 100 MG CAP PO SCH (08:23)
[2016-10-15] MEDS: ZINC PO SCH (08:24)
[2016-10-15] MEDS: [UNRECOGNIZED DRUG - OTHER] PO SCH (08:24)
[2016-10-15] MEDS: RIVAROXABAN 10 MG TAB PO SCH (11:44)
--- NOTE | 2016-10-15 11:57 | HHI.FPPN ---
Subjective Remarks Doing well - had difficulty with sleep. Denies CP or SOB. No fevers. (Terrell Mcallister MD R2) Objective Vitals Vital Signs Date Time Temp Pulse Resp B/P Pulse Ox O2 Delivery O2 Flow Rate FiO2 10/15/16 08:00 96.2 98 18 112/58 92 10/15/16 04:42 96.0 95 19 119/70 95 10/15/16 00:46 98.6 90 20 124/58 97 10/14/16 20:43 98.2 80 20 115/69 95 10/14/16 16:00 97.0 70 18 139/61 98 I/O 10/14/16 10/14/16 10/14/16 10/15/16 10/15/16 10/15/16 07:00 15:00 23:00 07:00 15:00 23:00 Intake Total 480 ml 1220 ml 480 ml 720 ml Balance 480 ml 1220 ml 480 ml 720 ml Intake Oral 480 ml 1220 ml 480 ml 720 ml # Voids 4 5 6 10 # Bowel Movements 0 0 0 0 (Terrell Mcallister MD R2) Result Diagram: 10/14/16 0536 10/13/16 0525 Imaging Last Impressions Knee X-Ray 10/12/16 0000 Signed Impressions: Service Date/Time: Wednesday, October 12, 2016 12:54 - CONCLUSION: 1. Orthopedic hardware excellent position. Rakesh Urrutia MD Objective Remarks GENERAL: Well-nourished, well-developed female patient, sleeping. SKIN: Warm and dry. Fingernails 2nd-4th digits having mild discoloration without nail thickening and only mildly elevated from the nail bed without extension onto the cuticle. 3rd and 4th fingernail having underlying black staining. CARDIOVASCULAR: Regular rate and rhythm. No murmurs. RESPIRATORY: No accessory muscle use. Clear to auscultation without crackles or wheezes. Breath sounds equal bilaterally. GASTROINTESTINAL: Abdomen soft, non-tender, nondistended. MUSCULOSKELETAL: Left leg wrapped in an Thomas wrap from ankle to thigh, currently in flexion at the knee. Sensation intact into left foot. 2+ dorsalis pedis pulse. Able to move all toes and ankle without issue. NEUROLOGICAL: Awake, alert and oriented 3 (Terrell Mcallister MD R2) A/P Assessment and Plan 66-year-old female admitted for scheduled left knee arthroplasty with Dr. Ashley. Surgical procedure completed on 10/12/16. Discharge Planning Today 10/15 (Terrell Mcallister MD R2) Attending Attestation Pt. examined and case discussed with resident physician I have read the above note and agree with the assessment/plan as discussed with me I was involved in all medical decision making for this patient Constantin Krishna MD (Constantin Krishna MD) Problem List: (1) Status post total left knee replacement Status: Acute Plan: POD # 3, performed by Dr. Ashley Post-op pain management per Ortho Activity and diet orders per Ortho - to be advanced today Postop antibiotics per Ortho Diet as tolerated Monitor for post-op complications, e.g. fever, atelectasis, bleeding, compartment syndrome Pain control per Ortho, currently Percocet 5-325mg 1-2 tabs pain score 0-5 and 5 -10, with morphine 4 mg IV q3h PRN for breakthrough (2) HTN (hypertension) Status: Chronic Plan: Well-controlled on home medications -Hydrochlorothiazide 12.5 Mg once daily and Lisinopril 20 Mg once daily. -Add PRN hydralazine IV q6hr for SBP >180 and DBP >100 (3) Onychomycosis Status: Acute Plan: Chronic. Stable. Will hold topical terbinafine as inpatient. (4) Fluids/Electrolytes/Nutrition/Prophylaxis Status: Acute Plan: Fluids: LR @ 80ml/hr - d/c'ed Electrolytes: monitor and replete as needed Nutrition: regular diet as tolerated DVT Prophylaxis: Per ortho. Xarelto started 10/13 GI Prophylaxis: none indicated CODE STATUS: Full code wdw Dr. Krishna. (Terrell Mcallister MD R2) Problem Qualifiers (1) HTN (hypertension): Qualified Code: I10 - Essential hypertension Terrell Mcallister MD R2 Oct 15, 2016 11:57 Constantin Krishna MD Oct 15, 2016 20:43
--- NOTE | 2016-10-16 16:28 | HHI.DS ---
Discharge Summary Admission Date Oct 12, 2016 at 07:10 Discharge Date: Oct 15, 2016 Admitting Diagnosis Elective total left knee arthroplasty (1) Status post total left knee replacement Diagnosis: Principal Plan: POD # 3, performed by Dr. Ashley Post-op pain management per Ortho Activity and diet orders per Ortho - to be advanced today Postop antibiotics per Ortho Diet as tolerated Monitor for post-op complications, e.g. fever, atelectasis, bleeding, compartment syndrome Pain control per Ortho, currently Percocet 5-325mg 1-2 tabs pain score 0-5 and 5 -10, with morphine 4 mg IV q3h PRN for breakthrough Xarelto was initiated 10/13. (2) HTN (hypertension) Diagnosis: Secondary Plan: Well-controlled on home medications -Hydrochlorothiazide 12.5 Mg once daily and Lisinopril 20 Mg once daily. -Add PRN hydralazine IV q6hr for SBP >180 and DBP >100 (3) Onychomycosis Diagnosis: Secondary Plan: Chronic. Stable. Will hold topical terbinafine as inpatient. Consultants Orthopedic surgery: Dr. Ashley CBC/BMP: 10/14/16 0536 10/13/16 0525 Significant Findings Laboratory Tests Test 10/14/16 05:36 Hemoglobin 8.8 GM/DL (11.6-15.3) Hematocrit 26.4 % (35.0-46.0) Imaging Last Impressions Knee X-Ray 10/12/16 0000 Signed Impressions: Service Date/Time: Wednesday, October 12, 2016 12:54 - CONCLUSION: 1. Orthopedic hardware excellent position. Rakesh Urrutia MD PE at Discharge GENERAL: Well-nourished, well-developed female patient, sleeping. SKIN: Warm and dry. Fingernails 2nd-4th digits having mild discoloration without nail thickening and only mildly elevated from the nail bed without extension onto the cuticle. 3rd and 4th fingernail having underlying black staining. CARDIOVASCULAR: Regular rate and rhythm. No murmurs. RESPIRATORY: No accessory muscle use. Clear to auscultation without crackles or wheezes. Breath sounds equal bilaterally. GASTROINTESTINAL: Abdomen soft, non-tender, nondistended. MUSCULOSKELETAL: Left leg wrapped in an Thomas wrap from ankle to thigh, currently in flexion at the knee. Sensation intact into left foot. 2+ dorsalis pedis pulse. Able to move all toes and ankle without issue. NEUROLOGICAL: Awake, alert and oriented 3 Hospital Course Patient was admitted on 10/12 for elective total left knee arthroplasty performed by Dr. Ashley. Medicine team was consulted for hypertension. As an outpatient, hypertension was managed medically with HCTZ 12.5 mg daily and lisinopril 20 mg daily. BP was well-controlled and she was discharged on 10/15 in stable condition to home with home health per Ortho. Pt Condition on Discharge: Good Discharge Disposition: Disch w/ Home Health Serv Discharge Instructions DIET: Follow Instructions for: As Tolerated, No Restrictions Activities you can perform: Full Weight Bearing, Shower Only-No Bath Activities to Avoid: Strenuous Activity, Bathing, Driving Qiana Rene MD R1 Oct 16, 2016 16:28
== END 2016-10-15 15:54 | disposition home health service (06) | DRG 470 ==
LOC: HSDI 10-12 07:10 → N06A 10-12 15:07
PROVIDERS: ADMIT Orthopaedic Surgery; ATTEND Orthopaedic Surgery
PROC: 3E0T3CZ (ICD-10-PCS; 2016-10-12)
PROC: 0SRD0JA Replacement of Left Knee Joint with Synthetic Substitute, Uncemented, Open Approach (ICD-10-PCS; principal; 2016-10-12 09:56)
DX: M17.12 Unilateral primary osteoarthritis, left knee (principal); I10 Essential (primary) hypertension; B35.1 Tinea unguium; Z96.651 Presence of right artificial knee joint; Z79.899 Other long term (current) drug therapy; Z88.2 Allergy status to sulfonamides; Z88.8 Allergy status to other drugs, medicaments and biological substances
CPT/HCPCS: 73560; 80048; 85014; 85018; 85025; 86077; 86850; 86870; 86900; 86901; 86920; 86922; 94150; C1776; C9290; J0690; J0780; J1170; J1580; J1885; J2250; J2270; J2405; J2710; J3010; J7120